=== PATIENT | female | born 1940 | race Caucasian/White ===

== ENCOUNTER 2022-06-28 10:57 | Emergency (ER) | payer OTHER, SELFPAY ==
--- NOTE | ~2022-06-28 | XR_ITS ---
XR hip LT 2V w AP pelvis DATE: 06/28/2022 11:49 INDICATION: Lateral left hip pain for 2 weeks. No known injury. TECHNIQUE: AP pelvis. AP and lateral views of left hip. COMPARISON: None FINDINGS: There is evidence of old healed fracture deformity of the left femoral shaft. No fracture o r dislocation, avascular necrosis or bone destruction of the left hip. No pelvic fracture or bone destruction. The pubic symphysis and sacral iliac joints are intact. There is dextro scoliosis and multilevel degenerative disc disease of the lumbar spine. Prominent abdominal aortic and iliac arterial calcifications. IMPRESSION: Dextroscoliosis and multilevel degenerative disc disease of the lumbar spine No pelvic or left hip fracture or dislocation Reviewed, dictated and finalized at location A. K WASHER IMPRESSION: Dextroscoliosis and multilevel degenerative disc disease of the lum bar spine No pelvic or left hip fracture or dislocation
--- NOTE | ~2022-06-28 | CT_ITS ---
EXAMINATION: CT lumbar spine wo con DATE: 06/28/2022 11:49 INDICATION: Left lumbar back pain, left hip pain for 2 weeks. No known injury. TECHNIQUE: Computed tomography (CT) of the lumbar spine was performed without intravenous contrast. A utomated exposure control and iterative reconstruction technique were employed. Exam dose: 158.18 mG y-cm total exam DLP. COMPARISON: None FINDINGS: There is mild loss of height, anterior wedging and cupping of the superior vertebral endpla te of L1, likely chronic. There is mild loss of height biconcavity of L5 as well, also likely chronic. Lumbar and lumbosacral interspaces are well preserved. There is some degenerative spurring of the lum bar vertebra and there is degenerative change at the apophyseal joints in the lower lumbar area, with out spondylolisthesis.. There is osteopenia.. IMPRESSION: Mild old compression deformities fracture of L1 and L5 Osteopenia Reviewed, dictated and finalized at Location A. Reviewed, dictated and finalized at location A. NG INSTRUCTOR
[2022-06-28 11:00] VITALS: BP 145/86; PULSE 82; RESP 20; TEMP 36.6; O2SAT 96
--- NOTE | 2022-06-28 11:12 | ED.EXTPRO ---
HPI - Extremity Problem General Chief complaint: Extremity Injury, Lower Stated complaint: left hip pain Time Seen by Provider: 06/28/22 11:11 Source: patient and RN notes reviewed Mode of arrival: ambulatory Limitations: no limitations History of Present Illness Complaint: extremity pain Onset (ago): week(s) (2) Pain Consistency: constant Location: left and lower extremity (hip) Severity scale (1-10): 10 Quality: aching and constant Radiation: distal (thigh) Relieving factors: nothing Exacerbating factors: range of motion and walking Associated symptoms: denies other symptoms Related Data Home Medications Medication Instructions Recorded Confirmed nitroglycerin 0.4 mg sublingual 0.4 mg sublingual Q5M PRN Chest 06/02/22 06/28/22 tablet Pain cholecalciferol (vitamin D3) 25 25 mcg PO DAILY 06/04/22 06/28/22 mcg (1,000 unit) capsule propranolol 60 mg capsule,24 60 mg PO DAILY 06/04/22 06/28/22 hr,extended release Allergies Allergy/AdvReac Type Severity Reaction Status Date / Time aspirin Allergy Unknown Unknown Verified 06/28/22 11:13 Review of Systems Review of Systems: All systems reviewed & are unremarkable except as noted in HPI and below PMFSH Past Medical History Medical History Anemia Anxiety Arthritis Coronary artery disease Heart disease Myocardial infarct Seizure disorder Stroke TIA (transient ischemic attack) Surgical History Surgical History Cataract extraction status, unspecified eye History of hysterectomy Family History Family History Sibling Heart disease Cancer of lung Mother Heart disease Father Heart disease Sibling Leukemia Social History Social History Social History: Now smoking 0.5ppd Smoking packs per day: 3 Smoking cigarettes per day: 60.0 Years smoked: 71 Smoking pack-years: 213.00 Smoking status: Current every day smoker Tobacco type: cigarettes Alcohol intake: former Substance use: never Substance use type: unknown Gender identity (if verbalized by the patient): Female Exam Const: General: no acute distress, alert and ill appearing acutely ( Appears in pain) Nutritional Appearance: well nourished and thin Orientation/consciousness: patient oriented x3 Limitations: no limitations HENMT: Head: normal to inspection Face and sinus: normal facial exam Mouth: Yes moist mucous membranes Eyes: Conjunctivae: conjunctivae normal Pupils: Equal, round and reactive pupils present EOM: EOMs intact bilaterally Neck: Neck: normal visual inspection Resp: Effort & Inspection: normal respiratory effort Auscultation: clear to auscultation bilaterally Cardio: Rate: regular rate Rhythm: regular rhythm GI: GI Palp: Yes Soft to palpation and No Tenderness to palpation present (GI) Auscultation: normal bowel sounds Back/Spine/Pelvis: Cervical Spine: cervical ROM normal Thoracic/Lumbar Spine: pain with thoraco-lumbar ROM, paraspinal muscle tenderness on the left in the mid lumbar and in the lower lumbar, thoraco-lumbar ROM limited with forward flexion, with lateral flexion to the right and with lateral flexion to the left and lumbar spinal tenderness at L3 and at L4 Sacroiliac joints: on the left tender to palpation Skin: General skin exam: normal color Rashes: no rashes Neuro: General: patient oriented x3, moves all extremities, no focal motor deficits and CN's II-XI intact bilaterally Speech: normal speech Gait exam (Neuro): Normal gait present Extrem: General: normal exam except as noted and no clubbing, cyanosis or edema Left lower extremity: hip/thigh Details: tenderness Location: of the hip Location: anteriorly and posteriorly and normal ROM; no deformity Psych: Mental Status: mental status grossly normal Affect:
[2022-06-28] MEDS: KETOROLAC 30 MG/ML VIAL (*BKC) IM (11:30)
[2022-06-28 12:42] VITALS: BP 90/56; PULSE 85; RESP 20; O2SAT 95
== END 2022-06-28 12:56 | disposition home or self-care (01) ==
PROVIDERS: Emergency Provider Emergency Medicine; PCP Nurse Practitioner
DX: M16.12 Unilateral primary osteoarthritis, left hip (principal); S32.019D Unspecified fracture of first lumbar vertebra, subsequent encounter for fracture with routine healing; S32.059D Unspecified fracture of fifth lumbar vertebra, subsequent encounter for fracture with routine healing
CPT/HCPCS: 72131; 73502; 96372; 99284; J1885

== ENCOUNTER 2022-08-10 10:07 | Outpatient (CLI) | payer OTHER, SELFPAY ==
--- NOTE | ~2022-08-10 | CT_ITS ---
CT Scan of the Chest without Contrast: Clinical Indication: Chronic cough, weight loss, COPD Technique: Contiguous sections were acquired throughout the chest without intravenous contrast. Dose reduction technique was used on this scan by utilizing automated exposure control and iterative recon struction technique. The dose-length product (DLP) was 133.08 mGy-cm. Findings: There is no evidence of any significant mediastinal, hilar or axillary lymphadenopathy. Coronary wendy ry calcifications are present. There is no evidence of pleural or pericardial effusion. Moderate emphysema noted. No suspicious pulmonary nodules seen. Images through the upper abdomen reveal extensive atherosclerotic calcification at the SMA origin. Impression: Moderate emphysema. Reviewed, dictated and finalized at location [] UTER HELP DESK REPRESENTATIVE Impression: Moderate emphysema.
--- NOTE | 2022-08-10 10:16 | EST_ITS ---
Patient Info Name: Keyonna Bacon Age: 81 years : 1940 Gender: Female Ht: 62 in Wt: 83 lbs BSA: 1.27 m2 Exam Date: 08/10/2022 12:20 PM Exam Location: [facility] Patient Status: Outpatient Admit Date: 08/10/2022 Staff Ordering Physician: Rosalio Hanson DO Attending Provider: Rosalio Hanson DO Referring Physician: Vladimir Arias APRN; Exam Type: CA stress aarti w NM Summary 1. 1. Negative lexiscan stress test for ischemic ST changes by ECG criteria. 2. 2. Stable hemodynamics throughout the test. 3. 3. Nuclear scan to follow and will be reported separately. Please correlate with it. 4. 4. Patient informed of the above results. Protocol: LEXISCAN Stress ECG Details Stage: REST Duration (min): 1 min : 28 sec HR (bpm): 69 SBP (mmHg): 125 DBP (mmHg): 69 Stage: REST Duration (min): 14 min : 6 sec HR (bpm): 70 SBP (mmHg): 125 DBP (mmHg): 69 Stage: STAGE 1 Duration (min): 0 min : 13 sec HR (bpm): 68 SBP (mmHg): 125 DBP (mmHg): 69 Stage: RECOVERY Duration (min): 0 min : 46 sec HR (bpm): 89 SBP (mmHg): 125 DBP (mmHg): 69 Stage: RECOVERY Duration (min): 1 min : 46 sec HR (bpm): 101 SBP (mmHg): 111 DBP (mmHg): 64 Stage: RECOVERY Duration (min): 2 min : 46 sec HR (bpm): 98 SBP (mmHg): 108 DBP (mmHg): 60 Stage: RECOVERY Duration (min): 3 min : 46 sec HR (bpm): 91 SBP (mmHg): 114 DBP (mmHg): 60 Stage: RECOVERY Duration (min): 4 min : 46 sec HR (bpm): 95 SBP (mmHg): 117 DBP (mmHg): 67 Stage: RECOVERY Duration (min): 5 min : 46 sec HR (bpm): 95 SBP (mmHg): 114 DBP (mmHg): 64 Stage: RECOVERY Duration (min): 6 min : 2 sec HR (bpm): 88 SBP (mmHg): 114 DBP (mmHg): 64 Rest HR: 70 bpm Peak HR: 101 bpm Rest Sys BP: 125 mmHg Peak Sys BP: 117 mmHg Max Pred HR: 140 bpm % Max Pred HR: 72 % Target HR: 119 bpm Max RPP: 11,817 bpm*mmHg Termination Reason: Completed protocol Cardiac Symptoms: Shortness of breath Total Time: 0 min : 13 sec Rest Holley BP: 69 mmHg Peak Holley BP: 67 mmHg Total Dose: 0.4 mg Resting ECG Sinus rhythm. Stress ECG No ST changes. Arrhythmias None. Report Signatures
--- NOTE | 2022-08-10 14:37 | WPDCARIOSTRE ---
Nuclear Stress Test INDICATIONS Indications: Chest pain PROCEDURE Procedure Performed: Myocardial Perf Spect-Multi Procedure: Patient underwent a lexiscan stress test and immediately was injected with 31.5 mCi of cardiolyte. Multiple tomographic images were obtained. These are of good quality. There is evidence of moderate size, moderate intensity anterior perfusion defect with stress imaging. A separate resting images were obtained after patient was injected with 10.8 mCi of cardiolyte. Multiple tomographic images were obtained. These are of good quality. There is no evidence of perfusion defects with rest imaging. CONCLUSION Conclusion: 1. Abnormal myocardial perfusion imaging demonstrating moderate size anterior perfusion defect suggestive of reversible ischemia. 2. Left ventriculogram demonstrates normal measured ejection fraction of 74% with no wall motion abnormalities. 3. TID score 1.12 is normal.
== END 2022-08-10 10:08 | disposition home or self-care (01) ==
PROVIDERS: PCP Nurse Practitioner; Referring Provider Nurse Practitioner Family; Visit Provider Internal Medicine Cardiovascular Disease
DX: R07.9 Chest pain, unspecified (principal); R91.8 Other nonspecific abnormal finding of lung field; R63.4 Abnormal weight loss; R05.3 Chronic cough; R94.39 Abnormal result of other cardiovascular function study; J43.9 Emphysema, unspecified
CPT/HCPCS: 71250; 78452; 93017; A9502; J2785

== ENCOUNTER 2022-08-21 12:59 | Outpatient (CLI) | payer OTHER, SELFPAY ==
--- NOTE | 2022-08-21 14:13 | ECHO_ITS ---
Patient Info Name: Keyonna Bacon Age: 81 years : 1940 Gender: Female Ht: 62 in Wt: 80 lbs BSA: 1.24 m2 HR: 68 bpm BP: 127 / 74 mmHg Technical Quality: Good Exam Date: 08/21/2022 2:20 PM Exam Location: [facility] Patient Status: Outpatient Admit Date: 08/21/2022 Staff Ordering Physician: Rosalio Hanson DO Band Top Maker: Gary Parsons, ROBIN, RT Attending Provider: Rosalio Hanson DO Referring Physician: Valentin ROSADO; Exam Type: CA echo dop color flow w con Study Info Indications R06.09 - Other forms of dyspnea Complete two-dimensional, color flow and Doppler transthoracic echocardiogram is performed. Strain analysis performed. Summary 1. Complete two-dimensional, color flow and Doppler transthoracic echocardiogram is performed. 2. Left ventricular chamber dimension is normal. 3. Left ventricular systolic function is normal, estimated at 60-65%. 4. The left ventricular diastolic function is grade I diastolic dysfunction. 5. E/e' 8 is minimally elevated. 6. Global longitudinal strain is normal at -20.8%. 7. The aortic valve is probably bicuspid. 8. There is mild aortic valve sclerosis. 9. There is mild aortic valve regurgitation. 10. There is trace mitral valve regurgitation. 11. No pulmonary hypertension, estimated pulmonary arterial systolic pressure is 30 mmHg. Left Ventricle E/e' 8 is minimally elevated. Global longitudinal strain is normal at -20.8%. Left ventricular chamber dimension is normal. Left ventricular systolic function is normal, estimated at 60-65%. The left ventricular diastolic function is grade I diastolic dysfunction. Right Ventricle Right ventricular systolic function is normal and with normal TAPSE 1.9 cm. Right ventricular chamber dimension is normal. Left Atria Left atrial chamber dimension is normal. Right Atria Right atrial chamber dimension is normal. Aortic Valve The aortic valve is probably bicuspid. There is mild aortic valve sclerosis. There is no aortic valve stenosis. There is mild aortic valve regurgitation. Pulmonic Valve There is no pulmonic regurgitation. Mitral Valve There is no mitral valve stenosis. There is trace mitral valve regurgitation. Tricuspid Valve There is no tricuspid valve regurgitation. No pulmonary hypertension, estimated pulmonary arterial systolic pressure is 30 mmHg. Pericardium/Pleural There is no pericardial effusion. Inferior Vena Cava Normal inferior vena cava with >50% collapse upon inspiration consistent with normal right atrial pressure, 5 mmHg. Aorta The aortic root size at the sinus of Valsalva is normal. Left Ventricular Outflow Tract Name Value Normal LVOT 2D LVOT Diameter 2.05 cm LVOT Doppler LVOT Peak Velocity 89.93 cm/s LVOT Peak Gradient 3 mmHg LVOT Mean Gradient 2 mmHg LVOT VTI 19.98 cm LVOT VTI/AV VTI Ratio 1.03 LVOT Stroke Volume 65.65 ml Mitral Valve
== END 2022-08-21 13:00 | disposition home or self-care (01) ==
LOC: CHSIMG 13:00
PROVIDERS: PCP Nurse Practitioner; Visit Provider Internal Medicine Cardiovascular Disease
DX: R06.09 Other forms of dyspnea (principal); I35.1 Nonrheumatic aortic (valve) insufficiency
CPT/HCPCS: C8929

== ENCOUNTER 2022-09-08 09:12 | Outpatient (CLI) | payer OTHER, SELFPAY ==
[2022-09-08 09:25] VITALS: PULSE 73; O2SAT 97
[2022-09-08 09:32] VITALS: PULSE 90; O2SAT 90
--- NOTE | 2022-09-08 10:05 | HOMEO2EVAL ---
Evaluation was performed at [facility] Home Oxygen Evaluation RC: Home Oxygen (O2) Evaluation Start: 09/08/22 10:01 Freq: Status: Active Protocol: RPE Activity Type Activity Date Activity User E-sign Co-sign Detail Recorded Client Recorded Date Recorded By Document 09/08/22 09:25 MADDIE [email or web address] 09/08/22 10:05 SJB Document 09/08/22 09:32 [email or web address] [email or web address] 09/08/22 10:05 SJB 09/08/22 09/08/22 09:25 09:32 Home O2 Evaluation [Oxygen] -Test Phase Resting Exercise -Oxygen Delivery Room Air Room Air [Pulse Oximetry] -Pulse Oximetry (90-100 %) 97 90 [Pulse Rate] -Pulse Rate (60-100 beats/min) 73 90 [Evaluation] -Activity Tolerance Good -Rating of Perceived Dyspnea (PD) +2 Mild, Some Difficulty, Noticeable to the Observer -Rate of Perceived Exertion (PE) 12 Query Text:Click the Protocol Button to View the RPE Scale [Exercise] -Ambulation Distance (feet) 800 -Ambulation Distance (meters) 243.82 [Comments] -Home Oxygen Evaluation Comments Will begin walk Pt walked on room air. approx 800 ft on room air, talking through test. Sp02s remained at 90% and above. HRs ranged from 73-90. Kenny well. [Charges] -Treatment Charges O2 Evaluation - Outpatient
--- NOTE | 2022-09-10 12:34 | WPDPFTINT ---
PFT Procedure Performed PFT Procedure Performed Spirometry with Pre/Post Bronchodilator PFT Interpretation DOS: 09/08/2022 REQUESTING: Vladimir Arias APRN REASON FOR TESTING: COPD, dyspnea PULMONARY FUNCTION TESTS Results are reliable and reproducible. Spirometry: Pre bronchodilator FEV1 is 1.32 L, 73% predicted. Pre bronchodilator FVC is 2.34 L, 102% predicted. The ratio FEV1/FVC is 57% which is decreased. After bronchodilator administration there is a 4% increase in the FEV1, 1.37 L, 76 per sent predicted. This is negligible. There is 11% increase in the FVC, 2.59 L, 113% predicted. This is greater than 200 mL, almost 12% which is the ATS standard for significant response to bronchodilator. Flow volume loop: There is coving of the expiratory limb consistent with obstructive airflow IMPRESSION: This spirometry with bronchodilator shows mild obstructive ventilatory impairment with a clinically good response to bronchodilator. There is no prior study for comparison. Maria Antonia Owens MD
== END 2022-09-08 09:13 | disposition home or self-care (01) ==
LOC: CHSCARD 09:13
PROVIDERS: PCP Nurse Practitioner; Visit Provider Nurse Practitioner Family
DX: J44.9 Chronic obstructive pulmonary disease, unspecified (principal); R06.09 Other forms of dyspnea; R05.9 Cough, unspecified; R94.2 Abnormal results of pulmonary function studies
CPT/HCPCS: 94060; 94618